=== PATIENT | male | born 1970 | race African-American/Black ===

== ENCOUNTER 2017-08-10 15:07 | Emergency (ER) | payer OTHER ==
[~2017-08-10] VITALS: Ht 172.2 cm; Wt 75.0 kg
[~2017-08-10 15:07] MED LIST: BACT800T5 PO; DICL50TA3 PO
--- NOTE | 2017-08-10 16:10 | PD ---
HPI Chief Complaint: Alcohol/Drug Intoxication Time Seen by Provider: 15:52 Travel History International Travel<30 days: No Contact w/Intl Traveler<30days: No History of Present Illness HPI 46-year-old male presents to the ED via law enforcement under [employer] act for psychiatric evaluation. According to the [employer] act paperwork the patient was obviously impaired, from a slow moving vehicle, having unusual outbursts, stated he may as well kill himself. The patients brother states that he knows that the patient has definitely been taking narcotics. On evaluation the patient is somnolent, rouses easily to voice. He denies physical complaints. He endorses suicidality. He does not have a plan. He is unable to provide the details of the events that occurred today. He endorses using cocaine and marijuana, declines to say how frequently. PFSH Past Medical History Blood Disorders: No Cancer: No Cardiovascular Problems: No Diminished Hearing: No Endocrine: No Genitourinary: No Immune Disorder: No Musculoskeletal: No Neurologic: Yes ([facility]AG[facility]'S PALSY) Psychiatric: No Reproductive: No Respiratory: No Past Surgical History Other Surgery: No Social History Alcohol Use: Yes Tobacco Use: Yes Substance Use: Yes (CRACK, COCAINE) Allergies-Medications (Allergen,Severity, Reaction): Coded Allergies: No Known Allergies (Verified , 08/23/16) Reported Meds & Prescriptions Reported Meds & Active Scripts Active Diclofenac Sodium DR (Diclofenac Sodium) 50 Mg Tabdr 50 Mg PO TID Bactrim DS (Sulfamethoxazole-Trimethoprim) 800-160 Mg Tab 1 Tab PO BID Review of Systems ROS Limitations: Intoxication Except as stated in HPI: all other systems reviewed are Neg Physical Exam Exam Limitations: Intoxication Narrative GENERAL: Well-nourished, well-developed black male no acute distress. SKIN: Focused skin assessment warm/dry. HEAD: Normocephalic. EYES: No scleral icterus. No injection or drainage. PERRLA. EOMI. NECK: Supple, trachea midline. No JVD or lymphadenopathy. CARDIOVASCULAR: Regular rate and rhythm without murmurs, gallops, or rubs. RESPIRATORY: Breath sounds clear and equal bilaterally. No accessory muscle use. GASTROINTESTINAL: Abdomen soft, non-tender, nondistended. Active bowel sounds MUSCULOSKELETAL: No cyanosis, or edema. Moves the extremities spontaneously. BACK: Nontender without obvious deformity. No CVA tenderness. Data Data Last Documented VS Vital Signs Date Time Temp Pulse Resp B/P (MAP) Pulse Ox O2 Delivery O2 Flow Rate FiO2 08/10/17 16:57 75 16 122/65 (84) 96 Room Air Orders Orders Complete Blood Count With Diff (08/10/17 16:06) Comprehensive Metabolic Panel (08/10/17 16:06) Psych Screen (08/10/17 16:06) Drug Screen, Random Urine (08/10/17 16:06) Alcohol (Ethanol) (08/10/17 16:06) Salicylates (Aspirin) (08/10/17 16:06) Tylenol (Acetaminophen) (08/10/17 16:06) Diet Regular Basic (08/10/17 Dinner) Lorazepam Inj (Ativan Inj) (08/10/17 18:45) Haloperidol Inj (Haldol Inj) (08/10/17 18:45) Labs Laboratory Tests Test 08/10/17 16:44 White Blood Count 11.0 TH/MM3 Red Blood Count 4.46 MIL/MM3 Hemoglobin 14.0 GM/DL Hematocrit 41.5 % Mean Corpuscular Volume 93.0 FL Mean Corpuscular Hemoglobin 31.3 PG Mean Corpuscular Hemoglobin Concent 33.7 % Red Cell Distribution Width 13.6 % Platelet Count 308 TH/MM3 Mean Platelet Volume 7.5 FL Neutrophils (%) (Auto) 63.2 % Lymphocytes (%) (Auto) 28.6 % Monocytes (%) (Auto) 6.2 % Eosinophils (%) (Auto) 1.4 % Basophils (%) (Auto) 0.6 % Neutrophils # (Auto) 7.0 TH/MM3 Lymphocytes # (Auto) 3.1 TH/MM3 Monocytes # (Auto) 0.7 TH/MM3 Eosinophils # (Auto) 0.1 TH/MM3 Basophils # (Auto) 0.1 TH/MM3 CBC Comment DIFF FINAL Differential Comment Blood Urea Nitrogen 9 MG/DL Creatinine 1.13 MG/DL Random Glucose 78 MG/DL Total Protein 7.5 GM/DL Albumin 3.9 GM/DL Calcium Level 8.7 MG/DL Alkaline Phosphatase 76 U/L Aspartate Amino Transf (AST/SGOT) 34 U/L Alanine Aminotransferase (ALT/SGPT) 28 U/L Total Bilirubin 0.5 MG/DL Sodium Level 143 MEQ/L Potassium Level 3.4 MEQ/L Chloride Level 108 MEQ/L Carbon Dioxide Level 22.4 MEQ/L Anion Gap 13 MEQ/L Estimat Glomerular Filtration Rate 84 ML/MIN Salicylates Level 2.5 MG/DL Urine Opiates Screen NEG Acetaminophen Level LESS THAN 2.0 MCG/ML Urine Barbiturates Screen NEG Urine Amphetamines Screen NEG Urine Benzodiazepines Screen NEG Urine Cocaine Screen POS Urine Cannabinoids Screen POS Ethyl Alcohol Level 229 MG/DL MDM Medical Decision Making Medical Screen Exam Complete: Yes Emergency Medical Condition: Yes Differential Diagnosis Adjustment disorder versus anxiety versus bipolar versus depression versus dementia versus electrolyte disorder versus malingering versus mood disorder versus ODD versus psychosis versus PTSD versus schizophrenia versus schizoaffective disorder versus substance-induced mood disorder versus other Narrative Course 46-year-old male presents to the ED via law enforcement under [employer] act for psychiatric evaluation. According to the [employer] act paperwork the patient was obviously impaired, from a slow moving vehicle, having unusual outbursts, stated he may as well kill himself. The patients brother states that he knows that the patient has definitely been taking narcotics. On evaluation the patient is somnolent, rouses easily to voice. He denies physical complaints. He endorses suicidality. He does not have a plan. He is unable to provide the details of the events that occurred today. He endorses using cocaine and marijuana, declines to say how frequently. Vitals reviewed. Physical exam is unremarkable. Tox screen positive for cannabinoids and cocaine. Alcohol level 229. No concerning abnormalities of the CBC, CMP. The patient is medically clear for psychiatric evaluation. Ana Fabian Aug 10, 2017 16:10
[2017-08-10 16:15] VITALS: BP 123/75; PULSE 74; RESP 16
[2017-08-10 16:57] VITALS: BP 122/65; PULSE 75; RESP 16; O2SAT 96
[2017-08-10 17:25] LABS: BASOPHIL # 0.1 TH/MM3 (0-0.2); BASOPHIL % 0.6 % (0.0-2.0); EOSINOPHIL # 0.1 TH/MM3 (0-0.4); EOSINOPHIL % 1.4 % (0.0-4.0); HEMATOCRIT 41.5 % (39.0-51.0); HEMO FLAGS DIFF FINAL; LYMPH % 28.6 % (9.0-44.0); LYMPHOCYTE # 3.1 TH/MM3 (1.0-4.8); MEAN CORPUSCULAR HEMOGLOBIN 31.3 PG (27.0-34.0); MEAN CORPUSCULAR HGB CONC 33.7 % (32.0-36.0); MONO % 6.2 % (0.0-8.0); NEUT % 63.2 % (16.0-70.0); PLATELET COUNT 308 TH/MM3 (150-450); RED BLOOD COUNT 4.46 MIL/MM3 (4.50-5.90); RED CELL DISTRIBUTION WIDTH 13.6 % (11.6-17.2)
[2017-08-10 18:30] LABS: ANION GAP 13 MEQ/L (5-15); AST (GOT) 34 U/L (15-37); BICARBONATE 22.4 MEQ/L (21.0-32.0); BLOOD UREA NITROGEN 9 MG/DL (7-18); CHLORIDE 108 MEQ/L (98-107); GLOMERULAR FILTRATION RATE 84 ML/MIN (>89); POTASSIUM 3.4 MEQ/L (3.5-5.1); SODIUM (NA) 143 MEQ/L (136-145)
[2017-08-10 18:31] LABS: ALCOHOL 229 MG/DL (0-5); ALT (GPT) 28 U/L (12-78)
[2017-08-10 18:33] LABS: ALKALINE PHOSPHATASE 76 U/L (45-117); TOTAL BILIRUBIN ADULT 0.5 MG/DL (0.2-1.0)
--- NOTE | 2017-08-10 18:34 | PD ---
Physical Exam Date Seen by Provider: Aug 10, 2017 Narrative This patient is out of the room screaming. I have ordered Haldol and Ativan. Data Data Last Documented VS Vital Signs Date Time Temp Pulse Resp B/P (MAP) Pulse Ox O2 Delivery O2 Flow Rate FiO2 08/10/17 16:57 75 16 122/65 (84) 96 Room Air Orders Orders Complete Blood Count With Diff (08/10/17 16:06) Comprehensive Metabolic Panel (08/10/17 16:06) Psych Screen (08/10/17 16:06) Drug Screen, Random Urine (08/10/17 16:06) Alcohol (Ethanol) (08/10/17 16:06) Salicylates (Aspirin) (08/10/17 16:06) Tylenol (Acetaminophen) (08/10/17 16:06) Diet Regular Basic (08/10/17 Dinner) Lorazepam Inj (Ativan Inj) (08/10/17 18:45) Haloperidol Inj (Haldol Inj) (08/10/17 18:45) Labs Laboratory Tests Test 08/10/17 16:44 White Blood Count 11.0 TH/MM3 Red Blood Count 4.46 MIL/MM3 Hemoglobin 14.0 GM/DL Hematocrit 41.5 % Mean Corpuscular Volume 93.0 FL Mean Corpuscular Hemoglobin 31.3 PG Mean Corpuscular Hemoglobin Concent 33.7 % Red Cell Distribution Width 13.6 % Platelet Count 308 TH/MM3 Mean Platelet Volume 7.5 FL Neutrophils (%) (Auto) 63.2 % Lymphocytes (%) (Auto) 28.6 % Monocytes (%) (Auto) 6.2 % Eosinophils (%) (Auto) 1.4 % Basophils (%) (Auto) 0.6 % Neutrophils # (Auto) 7.0 TH/MM3 Lymphocytes # (Auto) 3.1 TH/MM3 Monocytes # (Auto) 0.7 TH/MM3 Eosinophils # (Auto) 0.1 TH/MM3 Basophils # (Auto) 0.1 TH/MM3 CBC Comment DIFF FINAL Differential Comment Blood Urea Nitrogen 9 MG/DL Creatinine 1.13 MG/DL Random Glucose 78 MG/DL Albumin 3.9 GM/DL Calcium Level 8.7 MG/DL Aspartate Amino Transf (AST/SGOT) 34 U/L Alanine Aminotransferase (ALT/SGPT) 28 U/L Sodium Level 143 MEQ/L Potassium Level 3.4 MEQ/L Chloride Level 108 MEQ/L Carbon Dioxide Level 22.4 MEQ/L Anion Gap 13 MEQ/L Estimat Glomerular Filtration Rate 84 ML/MIN Salicylates Level 2.5 MG/DL Urine Opiates Screen NEG Urine Barbiturates Screen NEG Urine Amphetamines Screen NEG Urine Benzodiazepines Screen NEG Urine Cocaine Screen POS Urine Cannabinoids Screen POS Ethyl Alcohol Level 229 MG/DL MDM Supervised Visit with LETHA: Yes Narrative Course I, Dr. Stevens, have reviewed the advance practice practitioner's documentation and am in agreement, met with the patient face to face, made the diagnosis, and the medical decision making was done by me. *My assessment and Findings: This patient is here as a Michelle Act with substance abuse. He is now acting out. Please see Ana Fabian PA-C's note for results of laboratory and radiographic evaluation, ED course, final diagnosis and disposition Rylee Stevens MD Aug 10, 2017 18:34
[2017-08-10 18:38] LABS: ACETAMINOPHEN LESS THAN 2.0 MCG/ML (10.0-30.0)
[2017-08-10] MEDS ORDERED: LORazepam 2 MG/ML VIAL IM ONE (18:45)
[2017-08-10] MEDS ORDERED: HALOPERIDOL LACTATE 5 MG/ML AMP IM ONE (18:45)
[2017-08-10 20:49] VITALS: BP 115/63; PULSE 84; RESP 16; O2SAT 96
[2017-08-11 00:05] VITALS: BP 118/66; PULSE 78; RESP 14; O2SAT 98
[2017-08-11] MEDS ORDERED: ZIPRASIDONE MESYLATE 20 MG VIAL IM ONE (13:26)
--- NOTE | 2017-08-11 13:39 | PD ---
History of Present Illness Chief Complaint: Alcohol/Drug Intoxication Time Seen by Provider: 13:10 Travel History International Travel<30 Days: No Contact w/Intl Traveler<30days: No Known affected area: No Legal Status Legal Status: Michelle Act Michelle Act Signed By: Gloria Pickering Michelle Act Comment: 08/10/2017 254 PM OFC. Deysi HARRY #[id number] [id number] History of Present Illness: History of Present Illness HPI 46-year-old male with no reported psychiatric history who presents to the ED via law enforcement under [employer] act. According to the [employer] act paperwork the patient was obviously impaired, from a slow moving vehicle, having unusual outbursts, stated he may as well kill himself. The patients brother states that he knows that the patient has definitely been taking narcotics. On initial presentation to the emergency department he was somnolent and was unable to provide details of the events that occurred which led to him being placed under a [employer] act. The patient was monitored and J [facility] and it is reported that he slept all night without any significant incidents. As per toxicology report his blood alcohol level on admission was 229 and positive for cocaine and cannabinoids. This morning the patient is seen he is clinically sober. He states" I don't remember what happened last night. I drank a little too much." There is no indication that the patient is experiencing any psychosis, there is no sary, and there is no suicidal and or homicidal ideation. He denies any significant symptom of depression or anxiety. In terms of substance use he denies that he drinks every day and he minimizes the use of any other substance. In terms of psychiatric history he denies any previous psychiatric history. He denies that he is currently taking any medication. PFSH Past Medical History Blood Disorders: No Cancer: No Cardiovascular Problems: No Diminished Hearing: No Endocrine: No Gastrointestinal Disorders: No Genitourinary: No Immune Disorder: No Musculoskeletal: No Neurologic: Yes ([employer] PALSY) Psychiatric: No Reproductive: No Respiratory: No Past Surgical History Other Surgery: No Psychiatric History Psychiatric History Hx Psychiatric Treatment: Patient states he's had therapy while in group home. Denies any other psychiatric treatment. History of Inpatient Treatment: No Guns or firearms in home: No Social History Single male, lives with his mother. Unemployed. Hx Alcohol Use: Yes Hx Tobacco Use: Yes Hx Substance Use: Yes (CRACK, COCAINE, MARIJUANA) Substance Use Type: Alcohol, Marijuana, Cocaine Other Substances Used: 1/2 ppd Hx of Substance Use Treatment: No Family Psychiatric History Negative . Allergies-Medications (Allergen,Severity, Reaction): Coded Allergies: No Known Allergies (Verified , 08/23/16) Reported Meds & Prescriptions Reported Meds & Active Scripts Active Diclofenac Sodium DR (Diclofenac Sodium) 50 Mg Tabdr 50 Mg PO TID Bactrim DS (Sulfamethoxazole-Trimethoprim) 800-160 Mg Tab 1 Tab PO BID Review of Systems Except as stated in HPI: all other systems reviewed are Neg Mental Status Examination Appearance: Appropriate Consciousness: Alert Orientation: x4 Motor Activity: Normal gait Speech: Unremarkable Language: Adequate Fund of Knowledge: Adequate Attention and Concentration: Adequate Memory: Unremarkable Mood: Appropriate Affect: Appropriate Thought Process & Associations: Intact Thought Content: Appropriate Hallucination Type: None Delusion Type: None Suicidal Ideation: No Suicidal Plan: No Suicidal Intention: No Homicidal Ideation: No Homicidal Plan: No Homicidal Intention: No Insight: Fair Judgment: Impulsive MDM Medical Decision Making Medical Record Reviewed: Yes Assessment/Plan 46-year-old male presents to the ED via law enforcement under [employer] act for psychiatric evaluation. According to the [employer] act paperwork the patient was obviously impaired, from a slow moving vehicle, having unusual outbursts, stated he may as well kill himself. The patients brother states that he knows that the patient has definitely been taking narcotics. He endorses using cocaine and marijuana, declines to say how frequently. Patient at this time not psychotic, not manic. No suicidal or homicidal ideation. No evidence of any unstable mental illness as defined under the [employer] act. This is substance induced. Lift BA. Counseled on abstinence. Psychiatrically clear for discharge. Orders Orders Complete Blood Count With Diff (08/10/17 16:06) Comprehensive Metabolic Panel (08/10/17 16:06) Psych Screen (08/10/17 16:06) Drug Screen, Random Urine (08/10/17 16:06) Alcohol (Ethanol) (08/10/17 16:06) Salicylates (Aspirin) (08/10/17 16:06) Tylenol (Acetaminophen) (08/10/17 16:06) Diet Regular Basic (08/10/17 Dinner) Lorazepam Inj (Ativan Inj) (08/10/17 18:45) Haloperidol Inj (Haldol Inj) (08/10/17 18:45) Diet Regular Basic (08/11/17 Lunch) Ziprasidone Inj (Geodon Inj) (08/11/17 13:26) Results Vital Signs Date Time Temp Pulse Resp B/P (MAP) Pulse Ox O2 Delivery O2 Flow Rate FiO2 08/11/17 00:05 78 14 118/66 (83) 98 Room Air 08/10/17 20:49 84 16 115/63 (80) 96 Room Air 08/10/17 20:15 96 Room Air 08/10/17 16:57 75 16 122/65 (84) 96 Room Air 08/10/17 16:15 74 16 123/75 (91) Laboratory Tests Test 08/10/17 16:44 White Blood Count 11.0 Red Blood Count 4.46 Hemoglobin 14.0 Hematocrit 41.5 Mean Corpuscular Volume 93.0 Mean Corpuscular Hemoglobin 31.3 Mean Corpuscular Hemoglobin Concent 33.7 Red Cell Distribution Width 13.6 Platelet Count 308 Mean Platelet Volume 7.5 Neutrophils (%) (Auto) 63.2 Lymphocytes (%) (Auto) 28.6 Monocytes (%) (Auto) 6.2 Eosinophils (%) (Auto) 1.4 Basophils (%) (Auto) 0.6 Neutrophils # (Auto) 7.0 Lymphocytes # (Auto) 3.1 Monocytes # (Auto) 0.7 Eosinophils # (Auto) 0.1 Basophils # (Auto) 0.1 CBC Comment DIFF FINAL Differential Comment Blood Urea Nitrogen 9 Creatinine 1.13 Random Glucose 78 Total Protein 7.5 Albumin 3.9 Calcium Level 8.7 Alkaline Phosphatase 76 Aspartate Amino Transf (AST/SGOT) 34 Alanine Aminotransferase (ALT/SGPT) 28 Total Bilirubin 0.5 Sodium Level 143 Potassium Level 3.4 Chloride Level 108 Carbon Dioxide Level 22.4 Anion Gap 13 Estimat Glomerular Filtration Rate 84 Salicylates Level 2.5 Urine Opiates Screen NEG Acetaminophen Level LESS THAN 2.0 Urine Barbiturates Screen NEG Urine Amphetamines Screen NEG Urine Benzodiazepines Screen NEG Urine Cocaine Screen POS Urine Cannabinoids Screen POS Ethyl Alcohol Level 229 Diagnosis Primary Impression: Substance abuse Additional Impression: Substance induced mood disorder Psychiatrically Cleared: Yes Med/ Other Pt Specific Info: No Meds Exist/No RX given Disposition: 01 DISCHARGE HOME Condition: Stable Problem Qualifiers Ana Avitia Aug 11, 2017 13:39
[2017-08-11 14:06] VITALS: BP 118/66
--- NOTE | 2017-08-11 14:10 | PD ---
Physical Exam Date Seen by Provider: Aug 11, 2017 Time Seen by Provider: 14:09 Data Data Last Documented VS Vital Signs Date Time Temp Pulse Resp B/P (MAP) Pulse Ox O2 Delivery O2 Flow Rate FiO2 08/11/17 00:05 78 14 118/66 (83) 98 Room Air Orders Orders Complete Blood Count With Diff (08/10/17 16:06) Comprehensive Metabolic Panel (08/10/17 16:06) Psych Screen (08/10/17 16:06) Drug Screen, Random Urine (08/10/17 16:06) Alcohol (Ethanol) (08/10/17 16:06) Salicylates (Aspirin) (08/10/17 16:06) Tylenol (Acetaminophen) (08/10/17 16:06) Diet Regular Basic (08/10/17 Dinner) Lorazepam Inj (Ativan Inj) (08/10/17 18:45) Haloperidol Inj (Haldol Inj) (08/10/17 18:45) Diet Regular Basic (08/11/17 Lunch) Ziprasidone Inj (Geodon Inj) (08/11/17 13:26) Ed Discharge Order (08/11/17 14:07) Labs Laboratory Tests Test 08/10/17 16:44 White Blood Count 11.0 TH/MM3 Red Blood Count 4.46 MIL/MM3 Hemoglobin 14.0 GM/DL Hematocrit 41.5 % Mean Corpuscular Volume 93.0 FL Mean Corpuscular Hemoglobin 31.3 PG Mean Corpuscular Hemoglobin Concent 33.7 % Red Cell Distribution Width 13.6 % Platelet Count 308 TH/MM3 Mean Platelet Volume 7.5 FL Neutrophils (%) (Auto) 63.2 % Lymphocytes (%) (Auto) 28.6 % Monocytes (%) (Auto) 6.2 % Eosinophils (%) (Auto) 1.4 % Basophils (%) (Auto) 0.6 % Neutrophils # (Auto) 7.0 TH/MM3 Lymphocytes # (Auto) 3.1 TH/MM3 Monocytes # (Auto) 0.7 TH/MM3 Eosinophils # (Auto) 0.1 TH/MM3 Basophils # (Auto) 0.1 TH/MM3 CBC Comment DIFF FINAL Differential Comment Blood Urea Nitrogen 9 MG/DL Creatinine 1.13 MG/DL Random Glucose 78 MG/DL Total Protein 7.5 GM/DL Albumin 3.9 GM/DL Calcium Level 8.7 MG/DL Alkaline Phosphatase 76 U/L Aspartate Amino Transf (AST/SGOT) 34 U/L Alanine Aminotransferase (ALT/SGPT) 28 U/L Total Bilirubin 0.5 MG/DL Sodium Level 143 MEQ/L Potassium Level 3.4 MEQ/L Chloride Level 108 MEQ/L Carbon Dioxide Level 22.4 MEQ/L Anion Gap 13 MEQ/L Estimat Glomerular Filtration Rate 84 ML/MIN Salicylates Level 2.5 MG/DL Urine Opiates Screen NEG Acetaminophen Level LESS THAN 2.0 MCG/ML Urine Barbiturates Screen NEG Urine Amphetamines Screen NEG Urine Benzodiazepines Screen NEG Urine Cocaine Screen POS Urine Cannabinoids Screen POS Ethyl Alcohol Level 229 MG/DL MDM Medical Record Reviewed: Yes Supervised Visit with LETHA: No Narrative Course 46-year-old male presented to the emergency room previously under [employer] act for intoxication and suicidality. Patient denies suicidal ideation at this time. He was monitored until clinically sober. Patient was seen and evaluated by the [facility] nurse practitioner and not felt to be a threat to himself or others at this time. He is interested in leaving and contracts to safety. He is stable for discharge. Diagnosis Primary Impression: Substance abuse Patient Instructions: General Instructions, Cocaine Abuse (ED) Departure Forms: Tests/Procedures Disposition: 01 DISCHARGE HOME Condition: Stable Elisa Velazquez Aug 11, 2017 14:10
== END 2017-08-11 14:17 | disposition home or self-care (01) ==
LOC: NEPC 15:07 → NEPJ 08-11 14:17
DX: F19.14 Other psychoactive substance abuse with psychoactive substance-induced mood disorder (principal); R40.0 Somnolence; Z72.0 Tobacco use; Z86.69 Personal history of other diseases of the nervous system and sense organs
CPT/HCPCS: 80053; 80307; 85025; 96372; 99284; J1630; J2060; J3486